=== PATIENT | male | born 1935 | race Caucasian/White ===

== ENCOUNTER 2019-02-11 01:57 | Emergency (ER) | payer MEDICARE ==
[~2019-02-11] VITALS: Ht 180.3 cm; Wt 75.7 kg
[2019-02-11] MEDS ORDERED: LIDOCAINE 2% JEL UROJET 10 ML MM ONE ×2 (02:10→02:30)
[2019-02-11 03:02] LABS: APPEARANCE,URINE Turbid (CLEAR); BILIRUBIN,URINE Negative (NEGATIVE); BLOOD, URINE Large Ery/uL (NEGATIVE); COLOR,URINE Yellow (YELLOW); KETONES,URINE Negative (NEGATIVE); LEUKOCYTE ESTERASE ,URINE Large (NEGATIVE); NITRITE, URINE Positive (NEGATIVE); PROTEIN,URINE 100 mg/dl (NEGATIVE); UGLUCOSE 100 MG/DL mg/dL (NEGATIVE); UROBILINOGEN,URINE 0.2 EU/dL (0.2)
--- NOTE | 2019-02-11 03:03 | NUR ---
PT DISHA FROM HOME FOR VELASQUEZ CATH CHANGE, VSS STABLE, AFEBRILE, NEW VELASQUEZ INSERTED UA COLLECTED AND SENT, AWAITING FOR RESULTS.
[2019-02-11 03:12] LABS: BACTERIA,URINE Moderate /HPF (None Seen); SQUAMOUS EPITHELIAL CELL,UR Rare /HPF (None Seen); WBC,URINE 21-50 /HPF (0-3)
[2019-02-11 03:13] LABS: YEAST,URINE Many /HPF (None Seen)
--- NOTE | 2019-02-11 03:48 | NUR ---
Patient discharged to home in stable condition. Written rx abx and verbal after care instructions given. Patient verbalizes understanding of instruction.
[2019-02-11 03:50] VITALS: BP 126/67
== END 2019-02-11 03:51 | disposition home or self-care (01) ==
LOC: ER 02:03
DX: N39.0 Urinary tract infection, site not specified (principal); N32.89 Other specified disorders of bladder; I10 Essential (primary) hypertension; Z46.6 Encounter for fitting and adjustment of urinary device
CPT/HCPCS: 51702; 81001; 87077; 87086; 87186; 99284; J3490; 81000-TC

== ENCOUNTER 2019-02-22 01:10 | Emergency (ER) | payer MEDICARE ==
[~2019-02-22] VITALS: Ht 180.3 cm; Wt 75.7 kg
--- NOTE | 2019-02-22 02:11 | NUR ---
PT PRESENTED TO THE ER WITH A C/O CLOGGED VELASQUEZ CATH. PT STATED THAT THE VELASQUEZ WAS INSERTED A WEEK AGO IN THIS ER. PT STATED THAT THE CATHETER BECAME CLOGGED TODAY. PT IS AWAITING EVAL BY .
[2019-02-22] MEDS ORDERED: LIDOCAINE 2% JEL UROJET 10 ML MM ONE (02:33)
[2019-02-22 02:52] LABS: APPEARANCE,URINE Cloudy (CLEAR); BILIRUBIN,URINE Negative (NEGATIVE); BLOOD, URINE Moderate Ery/uL (NEGATIVE); COLOR,URINE Yellow (YELLOW); KETONES,URINE Negative (NEGATIVE); LEUKOCYTE ESTERASE ,URINE Small (NEGATIVE); NITRITE, URINE Negative (NEGATIVE); PH,URINE 5.5 (5.0-8.0); PROTEIN,URINE 100 mg/dl (NEGATIVE); UGLUCOSE 100 MG/DL mg/dL (NEGATIVE); UROBILINOGEN,URINE 0.2 EU/dL (0.2)
[2019-02-22 03:33] LABS: BACTERIA,URINE Few /HPF (None Seen); RBC,URINE 0-2 /HPF (0-2); SQUAMOUS EPITHELIAL CELL,UR Rare /HPF (None Seen); WBC,URINE 0-2 /HPF (0-3); YEAST,URINE Many /HPF (None Seen)
[2019-02-22 03:53] VITALS: BP 119/57
== END 2019-02-22 03:54 | disposition home or self-care (01) ==
LOC: ER 01:12
DX: T83.098A Other mechanical complication of other urinary catheter, initial encounter (principal); I10 Essential (primary) hypertension; I25.10 Atherosclerotic heart disease of native coronary artery without angina pectoris; Z98.890 Other specified postprocedural states
CPT/HCPCS: 51702; 81001; 87086; 99284; J3490; 81000-TC